=== PATIENT | male | born 1990 | race Two or more races ===

== ENCOUNTER 2023-12-12 21:51 | Emergency (ER) | payer OTHER ==
[2023-12-12 22:09] VITALS: BP 136/89; PULSE 91; RESP 20; TEMP 98.6; BMI 41.4
[2023-12-13 00:54] LABS: POTASSIUM 4.2 mmol/L (3.5-5.1)
[2023-12-13 00:56] LABS: BLOOD UREA NITROGEN 13.7 mg/dL (7-18); CALCIUM 8.7 mg/dL (8.5-10.1)
[2023-12-13 00:59] LABS: CREATININE 0.9 mg/dL (0.55-1.3)
[2023-12-13 01:01] LABS: BILIRUBIN,TOTAL 0.6 mg/dL (0.2-1)
== END 2023-12-13 02:32 | disposition home or self-care (01) ==
LOC: JER 21:51
DX: R07.89 Other chest pain (principal)
CPT/HCPCS: 36415; 71046-TC-FY; 80053; 84484; 93005; 93010; 99285-25

== ENCOUNTER 2024-01-21 22:24 | Emergency (ER) | payer OTHER ==
[2024-01-21 22:51] VITALS: RESP 18; TEMP 98.4; BMI 34.4
[2024-01-21] MEDS ORDERED: ACETAMINOPHEN INJECTION 100 ML ONE (23:35)
[2024-01-21] MEDS: ACETAMINOPHEN 1000 MG/100 ML BAG IVPB ONE (23:54)
[2024-01-21] MEDS: SODIUM CHLORIDE 0.9% 500 ML INFUS.BAG IV ONE (23:54)
[2024-01-21 23:58] LABS: BASO % 0.8 % (0-2.0); HEMATOCRIT 45.7 % (35.4-49); HEMOGLOBIN 15.9 GM/dL (11.7-16.9); LYMPH % 36.8 % (8-40); MCH 28.3 pg (25.7-33.7); MCHC 34.7 g/dl (32.0-35.9); MEAN CELL VOLUME 81.6 fl (80-96); MEAN PLT VOLUME 7.2 fl (7.5-11.1); MONO % 5.5 % (3.8-10.2); NEUT % 55.9 % (42.8-82.8); PLATELET COUNT 278 10^3/uL (134-434); RDW 15.1 % (11.9-15.9); WHITE BLOOD COUNT 12.8 K/mm3 (4.0-10.0)
[2024-01-22 00:32] LABS: POTASSIUM 4.2 mmol/L (3.5-5.1)
[2024-01-22 00:34] LABS: CALCIUM 8.9 mg/dL (8.5-10.1)
[2024-01-22 00:35] LABS: ALBUMIN 4.2 g/dl (3.4-5.0)
[2024-01-22 00:38] LABS: CREATININE 0.8 mg/dL (0.55-1.3)
[2024-01-22 00:40] LABS: BILIRUBIN,TOTAL 0.8 mg/dL (0.2-1)
[2024-01-22 00:42] LABS: BLOOD UREA NITROGEN 12.4 mg/dL (7-18); TOT PROT 8.2 g/dl (6.4-8.2)
[2024-01-22 01:22] LABS: HIV INTERPRETATION NEGATIVE (NEGATIVE)
[2024-01-22] MEDS ORDERED: MECLIZINE HCL 25 MG TABLET (FP) ONE (02:50)
[2024-01-22] MEDS: MECLIZINE HCL 25 MG TABLET (FP) PO ONE (03:01)
[2024-01-22 03:05] VITALS: BP 122/75; PULSE 80
== END 2024-01-22 03:05 | disposition home or self-care (01) ==
LOC: JER 22:24
PROC: 3E033NZ Introduction of Analgesics, Hypnotics, Sedatives into Peripheral Vein, Percutaneous Approach (ICD-10-PCS; principal; 2024-01-21)
PROC: 3E0337Z Introduction of Electrolytic and Water Balance Substance into Peripheral Vein, Percutaneous Approach (ICD-10-PCS; 2024-01-21)
DX: R42 Dizziness and giddiness (principal); R55 Syncope and collapse; R07.89 Other chest pain; H92.03 Otalgia, bilateral; R50.9 Fever, unspecified; Z20.822 Contact with and (suspected) exposure to COVID-19
CPT/HCPCS: 0241U-QW; 36415; 70450-TC; 71045-TC-FY; 80053; 84484; 85025; 86803; 87389; 93005; 93010; 99285-25; J0131

== ENCOUNTER 2024-03-10 14:04 | Emergency (ER) | payer OTHER ==
[2024-03-10 14:29] VITALS: BP 122/83; PULSE 80; RESP 8; TEMP 97.5; BMI 41.4
[2024-03-10] MEDS: SODIUM CHLORIDE 0.9% 500 ML INFUS.BAG IV ONE (15:30)
[2024-03-10 15:48] LABS: BASO % 0.5 % (0-2.0); EOS % 0.6 % (0-4.5); HEMATOCRIT 45.8 % (35.4-49); HEMOGLOBIN 15.1 GM/dL (11.7-16.9); LYMPH % 23.9 % (8-40); MCH 27.5 pg (25.7-33.7); MEAN CELL VOLUME 83.3 fl (80-96); MEAN PLT VOLUME 7.9 fl (7.5-11.1); MONO % 5.3 % (3.8-10.2); NEUT % 69.7 % (42.8-82.8); PLATELET COUNT 228 10^3/uL (134-434); RBC 5.49 M/mm3 (4.00-5.60); RDW 14.5 % (11.9-15.9); WHITE BLOOD COUNT 10.5 K/mm3 (4.0-10.0)
[2024-03-10 15:58] LABS: POTASSIUM 4.4 mmol/L (3.5-5.1)
[2024-03-10 15:59] LABS: CALCIUM 9.3 mg/dL (8.5-10.1)
[2024-03-10 16:00] LABS: BLOOD UREA NITROGEN 11.5 mg/dL (7-18)
[2024-03-10 16:03] LABS: CREATININE 0.8 mg/dL (0.55-1.3)
[2024-03-10 16:05] LABS: BILIRUBIN,TOTAL 0.6 mg/dL (0.2-1); TOT PROT 7.7 g/dl (6.4-8.2)
== END 2024-03-10 16:26 | disposition home or self-care (01) ==
LOC: JER 14:04
DX: F41.9 Anxiety disorder, unspecified (principal); R42 Dizziness and giddiness
CPT/HCPCS: 36415; 80053; 82962; 85025; 93005; 93010; 99284-25

== ENCOUNTER 2024-04-01 01:54 | Emergency (ER) | payer OTHER ==
[2024-04-01 02:03] VITALS: BP 135/67; PULSE 99; RESP 18; TEMP 98.7; BMI 29.7
[2024-04-01] MEDS ORDERED: hydrOXYzine PAMOATE 25 MG CAPSULE (FP) PO ONE (03:02)
[2024-04-01] MEDS: hydrOXYzine PAMOATE 25 MG CAPSULE (FP) PO ONE (03:05)
== END 2024-04-01 03:35 | disposition home or self-care (01) ==
LOC: JER 01:54
DX: R00.2 Palpitations (principal); F41.9 Anxiety disorder, unspecified; R55 Syncope and collapse; R42 Dizziness and giddiness; R10.13 Epigastric pain
CPT/HCPCS: 93005; 93010; 99283-25

== ENCOUNTER 2024-04-01 14:50 | Emergency (ER) | payer OTHER ==
[2024-04-01 15:17] VITALS: BP 136/79; PULSE 91; RESP 18; TEMP 97.7; BMI 39.2
[2024-04-01] MEDS ORDERED: ACETAMINOPHEN 325 MG TABLET (FP) ONE (17:07)
[2024-04-01] MEDS ORDERED: IBUPROFEN 400 MG TABLET (FP) PO ONE (17:08)
[2024-04-01] MEDS: IBUPROFEN 400 MG TABLET (FP) PO ONE (17:28)
[2024-04-01] MEDS: ACETAMINOPHEN 325 MG TABLET (FP) PO ONE (17:28)
[2024-04-01] MEDS ORDERED: hydrOXYzine PAMOATE 25 MG CAPSULE (FP) PO ONE (18:18)
[2024-04-01] MEDS: hydrOXYzine PAMOATE 25 MG CAPSULE (FP) PO ONE (18:40)
[2024-04-01] MEDS: SODIUM CHLORIDE 0.9% 1000 ML INFUS.BAG IV ONE (18:40)
[2024-04-01 19:22] LABS: BASO % 0.5 % (0-2.0); EOS % 0.8 % (0-4.5); HEMOGLOBIN 15.2 GM/dL (11.7-16.9); LYMPH % 34.6 % (8-40); MCH 27.3 pg (25.7-33.7); MCHC 32.4 g/dl (32.0-35.9); MEAN CELL VOLUME 84.2 fl (80-96); MEAN PLT VOLUME 7.6 fl (7.5-11.1); MONO % 5.2 % (3.8-10.2); NEUT % 58.9 % (42.8-82.8); PLATELET COUNT 289 10^3/uL (134-434); RBC 5.58 M/mm3 (4.00-5.60); RDW 14.7 % (11.9-15.9); WHITE BLOOD COUNT 11.7 K/mm3 (4.0-10.0)
[2024-04-01 19:35] LABS: POTASSIUM 4.2 mmol/L (3.5-5.1)
[2024-04-01 19:37] LABS: ALBUMIN 4.3 g/dl (3.4-5.0); CALCIUM 9.2 mg/dL (8.5-10.1)
[2024-04-01 19:38] LABS: BLOOD UREA NITROGEN 15.4 mg/dL (7-18)
[2024-04-01 19:40] LABS: CREATININE 0.9 mg/dL (0.55-1.3)
[2024-04-01 19:42] LABS: BILIRUBIN,TOTAL 0.8 mg/dL (0.2-1); TOT PROT 8.1 g/dl (6.4-8.2)
== END 2024-04-01 21:02 | disposition home or self-care (01) ==
LOC: JER 14:50
DX: F41.9 Anxiety disorder, unspecified (principal); R00.2 Palpitations; R42 Dizziness and giddiness; R51.9 Headache, unspecified; R07.9 Chest pain, unspecified
CPT/HCPCS: 36415; 71046-TC-FY; 80053; 84439; 84443; 84484; 85025; 93005; 93010; 99285-25

== ENCOUNTER 2024-08-14 20:35 | Emergency (ER) | payer OTHER ==
[2024-08-14 20:44] VITALS: RESP 20; BMI 23.5
[2024-08-14] MEDS ORDERED: ACETAMINOPHEN 500 MG TABLET (FP) ONE (21:31)
[2024-08-14] MEDS ORDERED: FAMOTIDINE 20 MG TABLET ONE (21:31)
[2024-08-14] MEDS ORDERED: MAG HYDROX/AL HYDROX/SIMETH 30 ML UNIT-DOSE CUP ONE (21:31)
[2024-08-14 21:37] LABS: HEMATOCRIT 46.1 % (40.1-51.0); HEMOGLOBIN 14.9 g/dL (13.7-17.5); MCHC 32.3 g/dl (32.3-36.5); MEAN CELL VOLUME 85.4 fl (79.0-92.2); MEAN PLT VOLUME 9.4 fl (9.4-12.4); PLATELET COUNT 242 x10^3/uL (163-337); RDW 13.8 % (12.0-15.6)
[2024-08-14] MEDS: FAMOTIDINE 20 MG TABLET PO ONE (21:45)
[2024-08-14] MEDS: ACETAMINOPHEN 500 MG TABLET (FP) PO ONE (21:45)
[2024-08-14] MEDS: MAG HYDROX/AL HYDROX/SIMETH -MYLANTA- ORAL SUSPENSION PO ONE (21:45)
[2024-08-14 22:43] LABS: BLOOD UREA NITROGEN 12.5 mg/dL (7-18); CALCIUM 9.6 mg/dL (8.5-10.1)
[2024-08-14 22:44] LABS: ALBUMIN 4.2 g/dl (3.4-5.0)
[2024-08-14 22:46] LABS: CREATININE 0.9 mg/dL (0.55-1.3)
[2024-08-14 22:48] LABS: BILIRUBIN,TOTAL 0.6 mg/dL (0.2-1); TOT PROT 7.9 g/dl (6.4-8.2)
[2024-08-15 00:28] VITALS: BP 104/71; PULSE 80; TEMP 98.2
== END 2024-08-15 01:04 | disposition home or self-care (01) ==
LOC: JER 20:35
DX: R07.2 Precordial pain (principal); R42 Dizziness and giddiness; R11.0 Nausea
CPT/HCPCS: 36415; 71046-TC-FY; 71275-TC; 74174-TC; 80053; 84484; 85027; 93005; 93010; 99285-25; Q9967